=== PATIENT | male | born 2005 | race Caucasian/White ===

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

== ENCOUNTER 2025-02-06 18:50 | Emergency (ER) | payer OTHER, MEDICAID, SELFPAY ==
[2025-02-06 18:55] VITALS: BP 136/81; PULSE 83; RESP 16; TEMP 36.7; O2SAT 98; BMI 26.3
--- NOTE | 2025-02-06 19:18 | CRLHL7_ITS ---
For Patients: As a result of the Century Cures Act, medical imaging exams and procedure reports are released immediately into your electronic medical record. You may view this report before your referring provider. If you have questions, please contact your health care provider. Indication: Work injury Technique: Right ankle 3 views. Comparison: None. Findings: Bones: Alignment is normal. No fractures or bone lesions. Joint spaces: The ankle mortise is congruent on nonweightbearing view. Soft tissues: Unremarkable. Impression: No acute fracture. Dictated by Rosamaria Kimbrough MD @ 02/06/2025 8:23:28 PM (Electronically Signed)
--- NOTE | 2025-02-06 20:01 | ED_ITS ---
HPI - General Adult General Chief complaint: Extremity Pain/Injury, Lower Stated complaint: Right Foot Pain Time Seen by Provider: 02/06/25 19:03 Source: patient Mode of arrival: ambulatory Limitations: no limitations History of Present Illness HPI narrative: 19-year-old male presenting today with right ankle pain. Patient states that he twisted his ankle 2 days ago and the pain is progressively gotten worse. He has a hard time walking. He complains of swelling of the ankle and foot. Denies other injury. Related Data Home Medications ?Medication ?Instructions ?Recorded ?Confirmed No Known Home Medications 02/06/2501/12 Allergies Allergy/AdvReac Type Severity Reaction Status Date / Time No Known Drug Allergies Allergy Verified 11/24/23 10:23 Review of Systems Status of ROS: Reports: 6 or more systems reviewed and unremarkable except as noted in History and below PFSH [facility] Social History Smoking Status: Never smoker Do you use any of these nicotine containing products: None How often do you have a drink containing alcohol: never How often do you have six or more drinks on one occasion: Never AUDIT-C Alcohol total score: 0 Non-prescribed substance use: denies use service: Yes Exam Narrative: Exam Narrative: Well-nourished well-developed patient in no acute distress. Alert and oriented. Answers questions appropriately. Mood and affect are appropriate. Thoughts are goal oriented and rational. No tangential or magical thinking noted. Patient speaks in full sentences without needing to catch his breath. HEENT: Normocephalic atraumatic. Extraocular muscles are intact. Conjunctivae are moist without any icterus noted. Moist mucous membranes. Extremities: Right ankle is swollen. He has medial and lateral-sided tenderness. No pain over the medial or lateral malleolus. Normal capillary refills. Full range of motion at the ankle. Const: Vital Signs, click to edit/add: Vital Signs - 24 hr 02/06/25 18:55 Temperature 98.0 F Pulse Rate [Pulse Oximeter] 83 Respiratory Rate 16 Blood Pressure [Ri ght Upper Arm] 136/81 Pulse Oximetry 98 Oxygen Delivery Me thod Room Air Course Course ED Course: Ankle x-ray was obtained, read by me, does not show any acute fractures. Vital Signs Vital signs: Initial Vital Signs Temperature 98.0 F 02/06/25 18:55 Temperature Source Temporal Artery Scan 02/06/25 18:55 Pulse Rate 83 02/06/25 18:55 Respiratory Rate 16 02/06/25 18:55 Blood Pressure 136/81 02/06/25 18:55 Blood Pressure Mean 99 02/06/25 18:55 Blood Pressure Position Sitting 02/06/25 18:55 Pulse Oximetry 98 02/06/25 18:55 Oxygen Delivery Method Room Air 02/06/25 18:55 Vital Signs Temperature 98.0 F 02/06/25 18:55 Pulse Rate 83 02/06/25 18:55 Respiratory Rate 16 02/06/25 18:55 Blood Pressure 136/81 02/06/25 18:55 Pulse Oximetry 98 02/06/25 18:55 Oxygen Delivery Method Room Air 02/06/25 18:55 Temperature 98.0 F 02/06/25 18:55 Pulse Rate 83 02/06/25 18:55 Respiratory Rate 16 02/06/25 18:55 Blood Pressure 136/81 02/06/25 18:55 Pulse Oximetry 98 02/06/25 18:55 Oxygen Delivery Method Room Air 02/06/25 18:55 Medical Decision Making MDM Narrative Medical decision making narrative: 19-year-old male with an ankle sprain. We discussed symptomatic treatment and reasons for follow-up. Imaging Data X-ray ankle: Attestation: I have reviewed the pertinent imaging results. Radiologist's impression: Technique: Right ankle 3 views. Comparison: None. Findings: Bones: Alignment is normal. No fractures or bone lesions. Joint spaces: The ankle mortise is congruent on nonweightbearing view. Soft tissues: Unremarkable. Impression: No acute fracture. Discharge Plan Discharge Clinical Impression: Ankle sprain and strain Patient Disposition: Home w/ Parent or Adult Condition: Stable Additional Instructions: Elevate as much as possible over the next 2-3 days. Ice areas that are sore, do not apply ice directly to the skin and do not ice for more than 20 minutes at a time. Okay to use ibuprofen or Tylenol as needed/as directed for pain. Prescriptions: No Action No Known Home Medications Follow Up/Referrals: Provider,Not a Local [Primary Care Provider, Family Practice] Stand Alone Forms: [employer] Info Instructions
== END 2025-02-06 20:38 | disposition home or self-care (01) ==
PROVIDERS: Emergency Provider Family Medicine
DX: S93.401A Sprain of unspecified ligament of right ankle, initial encounter (principal); X50.1XXA Overexertion from prolonged static or awkward postures, initial encounter
CPT/HCPCS: 73610; 99283; 99284